=== PATIENT | female | born 1970 | race Caucasian/White ===

== ENCOUNTER → 2016-07-26 | Outpatient (CLI) | payer BC | END | disposition home or self-care (01) | LOC: RAD.S 08:00 | DX: R10.2 Pelvic and perineal pain (principal); R10.9 Unspecified abdominal pain; K76.0 Fatty (change of) liver, not elsewhere classified; R93.8 Abnormal findings on diagnostic imaging of other specified body structures; Z90.710 Acquired absence of both cervix and uterus ==

== ENCOUNTER → 2016-08-10 | Outpatient (CLI) | payer SELFPAY | END | disposition home or self-care (01) | LOC: RAD.S 08-08 08:30 | DX: R10.9 Unspecified abdominal pain (principal); R10.2 Pelvic and perineal pain; N83.201 Unspecified ovarian cyst, right side ==